=== PATIENT | female | born 1960 | race Caucasian/White ===

== ENCOUNTER 2021-04-29 15:40 | Outpatient (CLI) | payer OTHER, SELFPAY ==
--- NOTE | ~2021-04-29 | MM_ITS ---
EXAMINATION: MM screening [facility] HISTORY: Screening TECHNIQUE: Craniocaudal and mediolateral oblique 3-D tomosynthesis images were obtained and synthetic 2-D images were generated. CAD analysis was submitted and interpreted. COMPARISON: Comparison to multiple prior studies sequentially, with oldest reviewed study dated 07/2012. BREAST PARENCHYMAL COMPOSITION: Breast composed of scattered areas of fibroglandular density FINDINGS: There is no evidence of suspicious mass, calcification, or architectural distortion to sugg est malignancy in either breast. There has been no suspicious interval change. IMPRESSION: 1. No mammographic evidence of malignancy. 2. Recommend routine screening mammography in one year. BI-RADS Category 1: Negative Reviewed, dictated and finalized at location A. THESIOLOGIST/PHYSICIAN
== END 2021-04-29 15:41 | disposition home or self-care (01) ==
LOC: ANHIMG 15:43
PROVIDERS: PCP Internal Medicine; Visit Provider Obstetrics & Gynecology
DX: Z12.31 Encounter for screening mammogram for malignant neoplasm of breast (principal)
CPT/HCPCS: 77063; 77067

== ENCOUNTER 2023-03-21 00:52 | Day surgery (SDC) | payer BC, SELFPAY ==
[2023-03-15 10:53] VITALS: BMI 29.3
--- NOTE | 2023-03-18 09:08 | PC.NURSE ---
Spoke with ____patient__ regarding medication _ELIQUIS . Pt. verbalizes understanding that the last dose of __ELIQUIS is to be taken on __03/18/2023____ and the Endoscopist will instruct them when to restart after the procedure.
--- NOTE | 2023-03-18 09:29 | SUR.PREOP ---
Patient called regarding upcoming procedure. Reviewed preop instructions, appointment times, and procedure prep.
--- NOTE | 2023-03-19 11:20 | PM.HPGS ---
History of Present Illness History of Present Illness Consent: Risks, benefits, and alternatives have been discussed and questions answered. Patient agrees to proceed with procedure. Chief complaint: hx of colon polyps Narrative: Spring Ordonez is a 63 year old female Referred for colon cancer screening. Her brother had colon cancer. She herself has had polyps in the past. Review of Systems Review of Systems: All systems reviewed & are unremarkable except as noted in HPI and below PMFSH Social History Social History Smoking status: Never smoker Alcohol intake: current Substance use: never Substance use type: does not use Living arrangements: with family Spiritual care concerns: No Meds Home Medications and Allergies Home Medications Medication Instructions Recorded Confirmed Type apixaban 5 mg tablet (Eliquis) 5 mg PO BID 03/15/23 03/21/23 History atorvastatin 20 mg tablet 20 mg PO DAILY 03/15/23 03/15/23 History cyanocobalamin (vitamin B-12) 2,500 mcg PO DAILY 03/15/23 03/15/23 History 2,500 mcg chewable tablet diazepam 5 mg tablet 5 mg PO TID PRN Muscle Spasm 03/15/23 03/15/23 History diltiazem HCl 60 mg tablet 30 mg PO TID 03/15/23 03/21/23 History ergocalciferol (vitamin D2) 1,250 50,000 unit PO DAILY 03/15/23 03/15/23 History mcg (50,000 unit) capsule isosorbide mononitrate 30 mg 30 mg PO DAILY 03/15/23 03/21/23 History tablet,extended release 24 hr losartan 50 mg tablet 50 mg PO DAILY 03/15/23 03/15/23 History nitroglycerin 0.4 mg sublingual 0.4 mg sublingual PRN PRN Chest 03/15/23 03/15/23 History tablet Pain omeprazole 20 mg capsule,delayed 20 mg PO DAILY 03/15/23 03/21/23 History release tramadol 50 mg tablet 50 mg PO TID PRN Pain 03/15/23 03/15/23 History Allergies Allergy/AdvReac Type Severity Reaction Status Date / Time valdecoxib Allergy Severe Swelling Verified 03/15/23 10:54 of Lip/Tongue/Throat cyclobenzaprine Allergy Swelling Verified 03/21/23 07:20 of Lip/Tongue/Throat Exam Resp: Auscultation: clear to auscultation bilaterally Cardio: Rate: regular rate Rhythm: regular rhythm GI: GI Palp: Yes Soft to palpation and No Tenderness to palpation present (GI) Assessment and Plan Assessment and plan (1) Colon cancer screening: Code(s): Z12.11 - Encounter for screening for malignant neoplasm of colon Status: Acute Assessment and Plan: Colonoscopy with possible biopsy or polypectomy or cautery or injection of substances.
[2023-03-21 07:21] VITALS: BP 140/86; PULSE 103; RESP 18; TEMP 36.7; O2SAT 98
[2023-03-21] MEDS: LACTATED RINGERS 1,000 ML 150 ML IV CONT (07:29)
--- NOTE | 2023-03-21 08:12 | P.PNAN_ITS ---
Anes - Initial Pre Proc Eval Procedure: Operation Date: 03/21/23 08:30 Proposed Procedures p Colonoscopy - Wiliam Kendall MD Date/Time: 03/21/23 08:12 Surgeon: Wiliam Kendall MD Pre Op Diagnosis: hx of colon polyps Patient Data Age: 63 Gender: F Height: 1.55 m Weight: 69.8 kg Last Vital Signs Temp 98.1 F 03/21/23 07:21 Pulse 103 H 03/21/23 07:21 Resp 18 03/21/23 07:21 BP 140/86 03/21/23 07:21 Pulse Ox 98 03/21/23 07:21 O2 Del Method Room Air 03/21/23 07:21 Allergies Allergy/AdvReac Type Severity Reaction Status Date / Time valdecoxib Allergy Severe Swelling Verified 03/15/23 10:54 of Lip/Tongue/Throat cyclobenzaprine Allergy Swelling Verified 03/21/23 07:20 of Lip/Tongue/Throat Home Medications Medication Instructions Recorded Confirmed Type apixaban 5 mg tablet (Eliquis) 5 mg PO BID 03/15/23 03/21/23 History atorvastatin 20 mg tablet 20 mg PO DAILY 03/15/23 03/15/23 History cyanocobalamin (vitamin B-12) 2,500 mcg PO DAILY 03/15/23 03/15/23 History 2,500 mcg chewable tablet diazepam 5 mg tablet 5 mg PO TID PRN Muscle Spasm 03/15/23 03/15/23 History diltiazem HCl 60 mg tablet 30 mg PO TID 03/15/23 03/21/23 History ergocalciferol (vitamin D2) 1,250 50,000 unit PO DAILY 03/15/23 03/15/23 History mcg (50,000 unit) capsule isosorbide mononitrate 30 mg 30 mg PO DAILY 03/15/23 03/21/23 History tablet,extended release 24 hr losartan 50 mg tablet 50 mg PO DAILY 03/15/23 03/15/23 History nitroglycerin 0.4 mg sublingual 0.4 mg sublingual PRN PRN Chest 03/15/23 03/15/23 History tablet Pain omeprazole 20 mg capsule,delayed 20 mg PO DAILY 03/15/23 03/21/23 History release tramadol 50 mg tablet 50 mg PO TID PRN Pain 03/15/23 03/15/23 History Patient hx anesthesia problems: none Family hx anesthesia problems: none Results Review: All pre-operative results and documents have been reviewed as part of the pre-operative evaluation. [facility] Social History Social History Smoking status: Never smoker Alcohol intake: current Substance use: never Substance use type: does not use Living arrangements: with family Spiritual care concerns: No Anes - Eval Final PreProcedure Day of Procedure 03/21/23 08:12 Patient weight: normal Heart: regular rate and rhythm Lungs: clear to auscultation Airway: Mallampati scale class II Neurological: alert and oriented Last oral intake: >/= 8 hours ASA classification: III Emergent: no Anesthetic plan: proceed Anesthesia type and monitoring: general GIVS and standard monitoring Results Review: All pre-operative results and documents have been reviewed as part of the pre- operative evaluation. Informed Consent: The patient's anesthetic plan and its attendant risks and benefits were discussed with the patient/family/POA. Questions were solicited and answers provided to the satisfaction of the patient/family/POA.
[2023-03-21 08:43] VITALS: BP 98/58; PULSE 67; RESP 17; O2SAT 97
--- NOTE | 2023-03-21 08:46 | SUR.PHASEII ---
Per Faiza, okay to resume Eliquis today
[2023-03-21 08:52] VITALS: BP 118/61; PULSE 69; RESP 13; O2SAT 100
== END 2023-03-21 09:01 | disposition home or self-care (01) ==
PROVIDERS: PCP Internal Medicine; Visit Provider Internal Medicine Gastroenterology
PROC: 0DJD8ZZ Inspection of Lower Intestinal Tract, Via Natural or Artificial Opening Endoscopic (ICD-10-PCS; CPT 45378; principal; 2023-03-21 08:30)
DX: Z12.11 Encounter for screening for malignant neoplasm of colon (principal); K57.30 Diverticulosis of large intestine without perforation or abscess without bleeding; Z79.01 Long term (current) use of anticoagulants; Z79.891 Long term (current) use of opiate analgesic; Z86.010 Personal history of colon polyps; Z80.0 Family history of malignant neoplasm of digestive organs
CPT/HCPCS: 45378; J2704; J7120

== ENCOUNTER 2023-05-31 15:25 | Outpatient (CLI) | payer BC, SELFPAY ==
--- NOTE | ~2023-05-31 | MM_ITS ---
EXAMINATION: MM screening sh[facility] BI [facility] HISTORY: Screening TECHNIQUE: Craniocaudal and mediolateral oblique 3-D tomosynthesis images were obtained and synthetic 2-D images were generated. CAD analysis was submitted and interpreted. COMPARISON: Comparison to multiple prior studies sequentially, with oldest reviewed study dated 03/11. BREAST PARENCHYMAL COMPOSITION: Not dense: There are scattered areas of fibroglandular density. FINDINGS: There is no evidence of suspicious mass, calcification, or architectural distortion to sugg est malignancy in either breast. There has been no suspicious interval change. IMPRESSION: 1. No mammographic evidence of malignancy. 2. Recommend routine screening mammography in one year. BI-RADS Category 1: Negative Reviewed, dictated and finalized at location A. REMENT BENEFITS SPECIALIST
== END 2023-05-31 15:26 | disposition home or self-care (01) ==
PROVIDERS: PCP Internal Medicine; Visit Provider Obstetrics & Gynecology
DX: Z12.31 Encounter for screening mammogram for malignant neoplasm of breast (principal)
CPT/HCPCS: 77063; 77067